=== PATIENT | male | born 1965 | race Caucasian/White ===

== ENCOUNTER 2017-03-15 12:40 | Emergency (ER) | payer SELFPAY ==
[~2017-03-15] VITALS: Ht 170.2 cm; Wt 80.0 kg
[2017-03-15 13:24] VITALS: BP 136/86
== END 2017-03-15 14:32 | disposition left against medical advice (07) ==
LOC: ER 14:21
DX: S00.212A Abrasion of left eyelid and periocular area, initial encounter (principal); M25.512 Pain in left shoulder; Y04.2XXA Assault by strike against or bumped into by another person, initial encounter; H57.8 Other specified disorders of eye and adnexa; S61.259A Open bite of unspecified finger without damage to nail, initial encounter; Y04.1XXA Assault by human bite, initial encounter; Y93.89 Activity, other specified; Y92.510 Bank as the place of occurrence of the external cause; I10 Essential (primary) hypertension
CPT/HCPCS: 99283